=== PATIENT | female | born 1990 | race Caucasian/White ===

== ENCOUNTER 2019-10-22 11:39 | Emergency (ER) | payer SELFPAY ==
[~2019-10-22] VITALS: Ht 154.9 cm; Wt 69.9 kg
[2019-10-22] MEDS ORDERED: SODIUM CHLORIDE 0.9% 1,000 ML IV ONE (11:50)
[2019-10-22] MEDS ORDERED: SODIUM CHLORIDE 0.9% 1,000ML IVBOLUS ONE (12:00)
[2019-10-22] MEDS ORDERED: ONDANSETRON 2MG/ML, 2ML IVPush ONE (12:00)
[2019-10-22] MEDS ORDERED: SODIUM CHLORIDE FLUSH 10ML SYR IVF ONE (12:00)
[2019-10-22] MEDS ORDERED: PLEASE ENTER HEIGHT AND WEIGHT MC SCH (12:00)
[2019-10-22 12:09] LABS: MEAN CORPUSCULAR HEMOGLOBIN 29.1 pg (27.0-34.8); MEAN CORPUSCULAR HGB CONC 33.5 g/dL (32.4-35.8); MEAN PLATELET VOLUME 7.8 fL (7.4-10.4); PLATELET COUNT 369 x10^3/uL (130-400); RED BLOOD COUNT 3.62 x10^6/uL (3.82-5.3); RED CELL DISTRIBUTION WIDTH 13.3 % (9.6-15.2)
--- NOTE | 2019-10-22 12:10 | NUR ---
continuation of ems liter of ns
--- NOTE | 2019-10-22 12:11 | NUR ---
l&d notified for heart tones.
[2019-10-22 12:22] LABS: ALANINE AMINOTRANSFERASE 35 U/L (12-78); ALBUMIN 2.2 g/dL (3.4-5.0); ANION GAP 7 mmol/L (5-15); CALCIUM 7.9 mg/dL (8.5-10.1); CHLORIDE 104 mmol/L (98-107); CREATININE 0.53 mg/dL (0.55-1.02)
[2019-10-22 12:24] LABS: ALKALINE PHOSPHATASE 74 U/L (45-117); BILIRUBIN,TOTAL 0.2 mg/dL (0.2-1.0); TOTAL PROTEIN 6.7 g/dL (6.4-8.2)
[2019-10-22] MEDS ORDERED: ONDANSETRON 2MG/ML, 2ML ONE (12:25)
[2019-10-22 12:31] LABS: MD YES
[2019-10-22 12:33] LABS: BAND#(MANUAL) 1.18 x10^3/uL; BANDS%(MANUAL) 6 % (0-7); LYMPH#(MANUAL) 0.39 x10^3/uL (1-3.4); LYMPHS% (MANUAL) 2 % (22-44); MONOS#(MANUAL) 1.76 x10^3/uL (0.3-2.7); MONOS% (MANUAL) 9 % (2-9); SEG#(MANUAL) 16.27 x10^3/uL (1.8-6.8); SEGS% (MANUAL) 83 % (42-75)
[2019-10-22 12:35] LABS: <PLATELET ESTIMATE> ADEQUATE; <PLT MORPHOLOGY> NORMAL PLT MORPH; <RBC MORPHOLOGY> NORMAL
[2019-10-22 14:43] LABS: MICROSCOPIC INDICATED
--- NOTE | 2019-10-22 15:24 | NUR ---
pt up to restroom. pt walks with a steady gait. pt denies any dizziness. pt awaiting provider recheck.
--- NOTE | 2019-10-22 15:55 | NUR ---
TASK RN. PT D/C'D PER ORDERS. HAS STEADY GAIT UPON D/C AND HAS ALL OWN BELONGINGS. PT VERBALIZED UNDERSTANDING OF D/C INSTRUCTIONS.
[2019-10-22 15:56] VITALS: BP 116/71
== END 2019-10-22 15:58 | disposition home or self-care (01) ==
LOC: ED 12:29
DX: O23.12 Infections of bladder in pregnancy, second trimester (principal); Z20.828 Contact with and (suspected) exposure to other viral communicable diseases; O21.8 Other vomiting complicating pregnancy; R94.31 Abnormal electrocardiogram [ECG] [EKG]; R50.9 Fever, unspecified; Z3A.20 20 weeks gestation of pregnancy
CPT/HCPCS: 36415; 71045; 80053; 81001; 85025; 87077; 87086; 93005; 96361; 96374; 99285; J2405; J7030; U0001; 87186

== ENCOUNTER 2019-10-24 05:31 | Inpatient (IN) | payer OTHER ==
[~2019-10-24] VITALS: Ht 154.9 cm; Wt 71.7 kg
--- NOTE | 2019-10-24 05:36 | NUR ---
PT. WENT STRAIGT INTO BATHROOM AFTER CHECKING IN; AWAITING PT. TO RETURN TO LOBBY SO TIRAGE CAN BE COMPLETED.
--- NOTE | 2019-10-24 05:58 | NUR ---
DROP CLIPPER: L&D WAS CALLED; THEY STATED TO SENT PT. UP. PER DR. MODI; PT. TO BE EVALUATED IN THE ED FIRST. L&D CALLED AGAIN BY THIS RN TO INFORM THEM THAT DR. MODI WILL FINISH WITH ED EVAL FIRST. REQUESTED FHT BE CONDUCTED. RESIDENT MD PERFORMED FHT AT BS; HOWEVER.
[2019-10-24] MEDS ORDERED: ONDANSETRON ODT 4 MG PO ONE (06:00)
[2019-10-24] MEDS ORDERED: CEFTRIAXONE PMX 1GM/50ML 50 ML IV SCH ×2 (06:00→08:00)
[2019-10-24] MEDS ORDERED: SODIUM CHLORIDE 0.9%, 500ML IVBOLUS ONE (06:00)
[2019-10-24] MEDS ORDERED: CEFTRIAXONE PMX 1GM/50ML 50 ML ONE (06:27)
[2019-10-24] MEDS ORDERED: ONDANSETRON ODT 4 MG ONE (06:27)
[2019-10-24 06:36] LABS: MEAN CORPUSCULAR HEMOGLOBIN 28.9 pg (27.0-34.8); MEAN CORPUSCULAR VOLUME 87.6 fL (80-100); MEAN PLATELET VOLUME 7.8 fL (7.4-10.4); PLATELET COUNT 395 x10^3/uL (130-400); RED BLOOD COUNT 3.52 x10^6/uL (3.82-5.3); RED CELL DISTRIBUTION WIDTH 13.5 % (9.6-15.2)
[2019-10-24 06:46] LABS: ALANINE AMINOTRANSFERASE 30 U/L (12-78); ALBUMIN 2.2 g/dL (3.4-5.0); ANION GAP 7 mmol/L (5-15); CALCIUM 8.5 mg/dL (8.5-10.1); CHLORIDE 105 mmol/L (98-107)
[2019-10-24 06:49] LABS: ALKALINE PHOSPHATASE 96 U/L (45-117); BILIRUBIN,TOTAL 0.1 mg/dL (0.2-1.0); TOTAL PROTEIN 7.1 g/dL (6.4-8.2)
[2019-10-24 07:02] LABS: MD YES
[2019-10-24 07:05] LABS: BAND#(MANUAL) 0.65 x10^3/uL; BANDS%(MANUAL) 4 % (0-7); BASOS#(MANUAL) 0.16 x10^3/uL (0-0.1); BASOS% (MANUAL) 1 % (0-1); LYMPH#(MANUAL) 2.28 x10^3/uL (1-3.4); LYMPHS% (MANUAL) 14 % (22-44); MONOS#(MANUAL) 2.12 x10^3/uL (0.3-2.7); MONOS% (MANUAL) 13 % (2-9); SEG#(MANUAL) 10.92 x10^3/uL (1.8-6.8); SEGS% (MANUAL) 67 % (42-75)
[2019-10-24 07:06] LABS: METAMYELOCYTES# (MANUAL) 0.16 x10^3/uL (0-0); METAMYELOCYTES% (MANUAL) 1 % (0-1)
--- NOTE | 2019-10-24 07:06 | NUR ---
REPORT RECIEVED FROM MARSHALL RODRIGEZ. PT UP TO RR, STEADY GAIT. PT STATES SHE IS "FEELING MUCH BETTER" AND WOULD LIKE SOME FOOD. WILL LET ER MD KNOW. WILL ORDER FOOD TRAY IF OK BY ERMD. PT ON MONITORS, VSS. BF AT BEDSIDE. L&D AT BEDSIDE FOR HEART TONES. CONT TO MONITOR.
[2019-10-24 07:07] LABS: <PLATELET ESTIMATE> ADEQUATE; <PLT MORPHOLOGY> NORMAL PLT MORPH; <RBC MORPHOLOGY> NORMAL
--- NOTE | 2019-10-24 07:21 | NUR ---
SPOKE WITH RESIDENT MD DR. WHIPPLE, WAIT TO GIVE PT MEAL TRAY UNTIL OB CONSULTED.
--- NOTE | 2019-10-24 07:46 | NUR ---
HOSPITALIST AT BEDSIDE FOR ASSESSMENT.
[2019-10-24] MEDS ORDERED: SODIUM CHLORIDE 0.9% 1,000 ML IV SCH (07:56)
[2019-10-24] MEDS ORDERED: hydrALAzine 20 MG/ML, 1ML IVPush PRN (08:00)
[2019-10-24] MEDS ORDERED: ACETAMINOPHEN 325 MG TABLET PO PRN (08:00)
[2019-10-24] MEDS ORDERED: ONDANSETRON 2MG/ML, 2ML IVPush PRN (08:00)
--- NOTE | 2019-10-24 08:14 | NUR ---
PT GIVEN MEAL TRAY.
[2019-10-24] MEDS: [UNRECOGNIZED DRUG - REMARK] MC SCH ×2 (08:19→13:54)
--- NOTE | 2019-10-24 08:22 | NUR ---
ATTEMPT X1 TO JASWANT REPORT TO FLOOR RN, RN NOT AVAILABLE.
--- NOTE | 2019-10-24 08:30 | NUR ---
REPORT GIVEN TO MANUELA RODRIGEZ. PT OK TO TRANSFER TO FLOOR.
[2019-10-24 08:45] VITALS: BP 96/62
[2019-10-24 08:46] VITALS: BP 110/78
[2019-10-24 10:42] LABS: MICROSCOPIC NOT IND
[2019-10-25] MEDS ORDERED: CEFTRIAXONE PMX 1GM/50ML 50 ML IV SCH (06:00)
== END 2019-10-24 14:46 | disposition left against medical advice (07) | DRG 831 ==
LOC: ED 06:33 → EDIP 07:35 → SUATTDRO 07:49 → 3N 08:47
PROVIDERS: ADMIT Hospitalist; ATTEND Hospitalist
DX: O98.812 Other maternal infectious and parasitic diseases complicating pregnancy, second trimester (principal); A41.9 Sepsis, unspecified organism; O23.02 Infections of kidney in pregnancy, second trimester; J45.909 Unspecified asthma, uncomplicated; O99.512 Diseases of the respiratory system complicating pregnancy, second trimester; Z3A.20 20 weeks gestation of pregnancy; Z87.891 Personal history of nicotine dependence; Z88.8 Allergy status to other drugs, medicaments and biological substances; Z53.29 Procedure and treatment not carried out because of patient's decision for other reasons
CPT/HCPCS: 36415; 80053; 81003; 83036; 83605; 85025; 87040; 87086; G0378; J0696; J2405; Q0162; J7030; J7040